=== PATIENT | male | born 1970 | race Caucasian/White ===

== ENCOUNTER 2020-02-27 14:06 | Emergency (ER) | payer BC, SELFPAY ==
[2020-02-27 14:23] VITALS: BP 129/90; PULSE 93; RESP 18; TEMP 36.6; O2SAT 98; BMI 27.7
--- NOTE | 2020-02-27 14:30 | XRR_ITS ---
PROCEDURE INFORMATION: Exam: XR Chest, 1 View Exam date and time: 02/27/2020 2:53 PM Age: 49 years old Clinical indication: Chest pain; Type not specified TECHNIQUE: Imaging protocol: XR of the chest Views: 1 view. COMPARISON: No relevant prior studies available. FINDINGS: Lungs: No focal infiltrate. Pleural space: Unremarkable. No pleural effusion. No pneumothorax. Heart/Mediastinum: Unremarkable. No cardiomegaly. Bones/joints: Unremarkable. XR/XR chest 1V portable [id number] IMPRESSION: No focal infiltrate. Question subtle atelectasis within the lung bases.
--- NOTE | 2020-02-27 14:30 | ECG_ITS ---
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 Measurements Intervals [place] Rate: 75 P: 37 RI: 162 QRS: 40 QRSD: 91 T: 39 QT: 376 QTc: 422 Interpretive Statements SINUS RHYTHM No previous ECG available for comparison Electronically Signed On 02-27-2020 17:02:44 CDT by Calixto Gunderson M.D. [id number] f
--- NOTE | 2020-02-27 15:10 | ED_ITS ---
HPI - Chest Pain General: Chief Complaint: Chest Pain Stated Complaint: sob/chest tightness/ Time Seen by Provider: 02/27/20 14:25 History of Present Illness: HPI narrative: 49-year-old male presents to the emergency room complaint of right rib pain. He was seen by a chiropractor earlier this week and had an adjustment seem to be getting better and then today he sat down to talk to his on the phone and began to have chest pain that radiated around from the right all the way around across his chest and back. He is not had any rash. It resolved after about 10 minutes. He now has pain with deep inspiration and change in position. He denies any diarrhea nausea or vomiting. No fever no cough he has a little shortness of breath but he feels that is because he cannot take a deep breath. He has had a slightly productive cough of greenish sputum for the last week as well. MD complaint: chest pain Onset (ago): minute(s) Timing of current episode: episodic Prior episodes: No Onset: during rest Pain location: left chest and right chest Pain radiation: none Severity: severe Quality: sharp Relieving factors: rest and other (Shallow inspirations) Exacerbating factors: inspiration and movement Associated symptoms: Reports dyspnea; Deny abdominal pain, diaphoresis, fever(s), leg edema, nausea, palpitations, sense of impending doom, syncope, vomiting or other Treatment prior to arrival: none Review of Systems Const: Denies: fever(s) or diaphoresis ENMT: Denies: throat pain, ear or mastoid pain, nasal discharge or nasal congestion Card: Denies: palpitations or syncope Resp: Reports: dyspnea GI: Denies: abdominal pain, nausea or vomiting : Denies: flank pain, dysuria, urinary frequency or urinary urgency Skin/Breast: Denies: rash or pruritus PFS ED PFSH: Medical History (Updated 02/27/20 @ 18:13 by Negro Segovia DO) Herpes Surgical History History of rectal polypectomy History of tonsillectomy Family History Mother Cancer Social History Smoking and tobacco status: current every day smoker cigarettes Packs smoked per day: 1 Alcohol intake: never Current occupational status: employed Current occupation: [employer] Physical Exam Const: COMMON NORMALS: no acute distress GENERAL APPEARANCE: cooperative and comfortable ORIENTATION/CONSCIOUSNESS: Yes awake, Yes oriented to person, Yes oriented to place and Yes oriented to time HENMT: COMMON NORMALS: normocephalic, atraumatic and hearing grossly normal bilaterally HEAD & SCALP: normocephalic and atraumatic Eye: COMMON NORMALS: Equal, round and reactive pupils present, EOMs intact bilaterally, conjunctivae normal and no scleral icterus CONJUNCTIVA: Yes conjunctivae normal PUPIL: Yes Equal, round and reactive pupils present Neck/C-Spine: COMMON NORMALS: full ROM, no lymphadenopathy, supple and no JVD Lymph: LYMPHATIC: no lymphadenopathy noted and no lymphedema noted Chest: OTHER: Chest pain mildly reproducible across anterior chest wall Resp: COMMON NORMALS: normal respiratory effort, No retractions, No use of accessory muscles and clear to auscultation bilaterally AUSCULTATION: clear to auscultation bilaterally Cardio: COMMON NORMALS: no JVD, regular rate, regular rhythm and No murmurs present (Cardio) RATE: regular rate RHYTHM: regular rhythm GI: COMMON NORMALS: Soft to palpation and No hepatosplenomegaly present AUSCULTATION: Yes normoactive bowel sounds PALPATION: Yes Soft to palpation, No Tenderness to palpation present (GI), No Guarding due to palpation present (GI) and Yes No hepatosplenomegaly present Extremity: COMMON NORMALS: normal to inspection, capillary refill normal, no clubbing, cyanosis or edema, no calf tenderness and no pedal edema Neuro: SENSORIUM/ORIENTATION: Yes oriented to person, Yes oriented to place and Yes oriented to time Skin: COMMON NORMALS: no rashes or lesions noted GENERAL SKIN EXAM: no rashes or lesions noted Course Vital Signs: Vital signs: Vital Signs Temperature 97.8 F 02/27/20 14:23 Pulse Rate 60 02/27/20 18:37 Respiratory Rate 20 H 02/27/20 18:37 Blood Pressure 113/76 02/27/20 18:37 Pulse Oximetry 94 02/27/20 18:37 MDM - Chest Pain MDM Narrative: Medical decision making narrative: Reveals full deep inspiration and somewhat with palpation is a little bit concerned so we get a second troponin both were negative we will go ahead and discharge the patient home with a Medrol Dosepak and diclofenac if has any worsening or change symptoms return to the emergency room. Lab Data: Labs: Lab Results 02/27/20 02/27/20 02/27/20 Range/Units 15:30 15:30 15:30 WBC 9.2 (4.0-10.0) 10^3/ uL RBC 4.92 (4.1-5.3) 10^6/u L Hgb 15.9 (11.7-16.6) g/dL Hct 46.9 (42.0-52.0) % MCV 95.3 H (80-94) fL MCH 32.3 (28.0-34.0) pg MCHC 33.9 (30.0-36.0) g/dL RDW 12.0 L (12.1-15.1) % Plt Count 244 (130-400) 10^3/c mm MPV 10.0 (7.4-10.4) fL Neut % (Auto) 48.8 % Lymph % (Auto) 39.0 % [place] % (Auto) 8.1 % Eos % (Auto) 3.3 % Baso % (Auto) 0.7 % Neut # (Auto) 4.48 (1.8-7.7) 10^3/u L Lymph # (Auto) 3.6 (0.8-4.8) 10^3/u L [place] # (Auto) 0.7 (0.2-0.9) 10^3/u L Eos # (Auto) 0.3 (0.0-0.8) 10^3/u L Baso # (Auto) 0.1 (0.0-0.1) 10^3/u L Nucleated RBC % (a uto) 0 % Nucleated RBCs # 0.0 /100WBC Sodium 139 (136-145) mmol/L Potassium 4.2 (3.5-5.1) mmol/L Chloride 104 (98-107) mmol/L Carbon Dioxide 23 (22-29) mmol/L Anion Gap 16.2 (5-19) BUN 16 (6-20) mg/dL Creatinine 1.0 (0.7-1.2) mg/dL GFR Calculation 80.1 L (90-130) mL/min Glucose 90 (65-115) mg/dL Calculated Osmolal ity 289 (285-295) mOsm/k g Calcium 9.6 (8.5-10.5) mg/dL Total Bilirubin 0.3 (0.15-1.2) mg/dL AST 18 (0-40) U/L ALT 29 (0-41) U/L Alkaline Phosphata se 81 (40-130) IU/L Troponin T Baselin e 7 (0-15) ng/L Troponin T [address] [place] (0-15) ng/L Delta Troponin T (0-10) ABS# Total Protein 7.2 (6.6-8.7) g/dL Albumin 4.9 (3.5-5.2) g/dL Globulin 2.3 (1.3-4.6) g/dL 02/27/20 Range/Units 17:22 WBC (4.0-10.0) 10^3/ uL RBC (4.1-5.3) 10^6/u L Hgb (11.7-16.6) g/dL Hct (42.0-52.0) % MCV (80-94) fL MCH (28.0-34.0) pg MCHC (30.0-36.0) g/dL RDW (12.1-15.1) % Plt Count (130-400) 10^3/c mm MPV (7.4-10.4) fL Neut % (Auto) % Lymph % (Auto) % [place] % (Auto) % Eos % (Auto) % Baso % (Auto) % Neut # (Auto) (1.8-7.7) 10^3/u L Lymph # (Auto) (0.8-4.8) 10^3/u L [place] # (Auto) (0.2-0.9) 10^3/u L Eos # (Auto) (0.0-0.8) 10^3/u L Baso # (Auto) (0.0-0.1) 10^3/u L Nucleated RBC % (a uto) % Nucleated RBCs # /100WBC Sodium (136-145) mmol/L Potassium (3.5-5.1) mmol/L Chloride (98-107) mmol/L Carbon Dioxide (22-29) mmol/L Anion Gap (5-19) BUN (6-20) mg/dL Creatinine (0.7-1.2) mg/dL GFR Calculation (90-130) mL/min Glucose (65-115) mg/dL Calculated Osmolal ity (285-295) mOsm/k g Calcium (8.5-10.5) mg/dL Total Bilirubin (0.15-1.2) mg/dL AST (0-40) U/L ALT (0-41) U/L Alkaline Phosphata se (40-130) IU/L Troponin T Baselin e (0-15) ng/L Troponin T [address] [place] 6.56 (0-15) ng/L Delta Troponin T -0.44 L (0-10) ABS# Total Protein (6.6-8.7) g/dL Albumin (3.5-5.2) g/dL Globulin (1.3-4.6) g/dL Discharge Plan Discharge Patient Disposition: Home Clinical Impression: Atypical chest pain Condition: Stable Prescriptions: New diclofenac sodium 75 mg tablet,delayed release (DR/EC) 75 mg PO Q12H PRN (Reason: pain) Qty: 20 RF: 0 Medrol (Jesse) 4 mg tablets,dose pack See Rx Instructions .ROUTE .COMPLEX Qty: 21 RF: 0 No Action valacyclovir 500 mg tablet 500 mg PO DAILY RF: 0 Discharge Orders: Discharge Order (Routine); Ordered 02/27/20 Ordered By: Negro Segovia Referrals: Sterling Vegas MD [Primary Care Provider] - Discharge Diet: Usual diet Discharge Activity: Increase activity as tolerated Activity Restrictions/Additional Instructions: Return to the emergency room if you have recurrence of symptoms Discharge Date/Time: 02/27/20 18:39 Coding Level of Care Code ED Employment Interviewer for Chg Fwd Exam Comprehensive
[2020-02-27 15:48] LABS: Basophils # 0.1 10^3/uL (0.0-0.1); Basophils % 0.7 %; Eosinophils # 0.3 10^3/uL (0.0-0.8); Eosinophils % 3.3 %; Hematocrit 46.9 % (42.0-52.0); Hemoglobin 15.9 g/dL (11.7-16.6); Lymphocytes # 3.6 10^3/uL (0.8-4.8); Mean Corpuscular HGB Conc 33.9 g/dL (30.0-36.0); Mean Corpuscular Hemoglobin 32.3 pg (28.0-34.0); Mean Corpuscular Volume 95.3 fL (80-94); Monocytes # 0.7 10^3/uL (0.2-0.9); Monocytes % 8.1 %; Neutrophils # 4.48 10^3/uL (1.8-7.7); Neutrophils % 48.8 %; Nucleated Red Blood Cells % 0 %; Platelet Count 244 10^3/cmm (130-400); Red Blood Count 4.92 10^6/uL (4.1-5.3); White Blood Count 9.2 10^3/uL (4.0-10.0)
[2020-02-27 16:10] LABS: Alanine Aminotransferase 29 U/L (0-41); Albumin Level 4.9 g/dL (3.5-5.2); Alkaline Phosphatase 81 IU/L (40-130); Anion Gap 16.2 (5-19); Aspartate Amino Transferase 18 U/L (0-40); Blood Urea Nitrogen 16 mg/dL (6-20); Calcium 9.6 mg/dL (8.5-10.5); Carbon Dioxide 23 mmol/L (22-29); Chloride 104 mmol/L (98-107); Globulin 2.3 g/dL (1.3-4.6); Glomerular Filtration Rate 80.1 mL/min (90-130); Glucose 90 mg/dL (65-115); Osmolality Calculated 289 mOsm/kg (285-295); Potassium 4.2 mmol/L (3.5-5.1); Sodium 139 mmol/L (136-145); Total Bilirubin 0.3 mg/dL (0.15-1.2); Total Protein 7.2 g/dL (6.6-8.7)
[2020-02-27 16:13] LABS: Troponin(5th) Baseline 7 ng/L (0-15)
--- NOTE | 2020-02-27 16:30 | ECG_ITS ---
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 Measurements Intervals [place] Rate: 77 P: 35 DC: 152 QRS: 40 QRSD: 93 T: 35 QT: 364 QTc: 414 Interpretive Statements SINUS RHYTHM No previous ECG available for comparison Electronically Signed On 02-27-2020 17:03:51 CDT by Calixto Gunderson M.D. [id number] f
[2020-02-27 17:11] VITALS: BP 107/73; PULSE 71; RESP 18; O2SAT 93
[2020-02-27 17:57] LABS: Troponin 5 2HR 6.56 ng/L (0-15)
[2020-02-27 18:09] LABS: Troponin 5 2HR Delta -0.44 ABS# (0-10)
[2020-02-27 18:37] VITALS: BP 113/76; PULSE 60; RESP 20; O2SAT 94
== END 2020-02-27 18:39 | disposition home or self-care (01) ==
PROVIDERS: Emergency Provider Family Medicine; PCP Family Medicine
DX: R07.89 Other chest pain (principal); F17.210 Nicotine dependence, cigarettes, uncomplicated
CPT/HCPCS: 12345; 36415; 71045; 80053; 84484; 85025; 93005; 99282; 99283

== ENCOUNTER 2023-05-06 14:07 | Outpatient (CLI) | payer BC, SELFPAY ==
--- NOTE | 2023-05-06 14:16 | CT_ITS ---
WS: [id number] LDCT LUNG CANCER SCREENING HISTORY: HX OF TOBACCO USE TECHNIQUE: Axial imaging performed from the apices to 1 cm below the costophrenic angles. Coronal and sagittal reformats are submitted with axial MIP series. All CT scans at [facility] use at least one of these dose optimization techniques: automated exposure control; mA and/or kV adjustment per patient size (includes targeted exams where dose is matched to clinical indication); or iterativ e reconstruction. DLP: 82.90 mGy.cm DIvol: Mean CTDIvol: 1.70 (mGy) COMPARISON: None available. Diagnostic quality: Satisfactory Lungs: 3 mm nodule, noncalcified at the lingula. No additional nodule or mass. No endobronchial lesio ns. Heart: Normal size heart with no pericardial effusion.. Coronary artery plaque. Other findings: No adenopathy. Benign axillary lymph nodes. Negative gallbladder. No adrenal mass. IMPRESSION: CT/CT lung screening [id number] LUNG-RADS: 2-Benign Appearance or Behavior FOLLOW UP: 12 Month: Continue annual screening with LDCT OTHER FINDINGS (S MODIFIER): None.
== END 2023-05-06 14:08 | disposition home or self-care (01) ==
LOC: RAD 14:07
PROVIDERS: PCP Family Medicine; Visit Provider Family Medicine
DX: Z12.2 Encounter for screening for malignant neoplasm of respiratory organs (principal); Z87.891 Personal history of nicotine dependence
CPT/HCPCS: 71271

== ENCOUNTER 2024-10-08 07:00 | Outpatient (CLI) | payer BC, SELFPAY ==
--- NOTE | 2024-10-08 07:11 | CT_ITS ---
WS: [id number] LDCT LUNG CANCER SCREENING HISTORY: NICOTINE DEPENDENCE TECHNIQUE: Axial imaging performed from the apices to 1 cm below the costophrenic angles. Coronal and sagittal reformats are submitted with axial MIP series. All CT scans at [facility] use at least one of these dose optimization techniques: automated exposure control; mA and/or kV adjustment per patient size (includes targeted exams where dose is matched to clinical indication); or iterative reconstruction. DLP: 94.02 mGy.cm DIvol: Mean CTDIvol: 2.00 (mGy) COMPARISON: 05/06/2023 Diagnostic quality: Satisfactory Lungs: Stable 3 mm nodule in the lingula. No additional nodules or masses. No groundglass attenuation or endobronchial lesions. Heart: Normal size heart with no pericardial effusion.. Other findings: Mild atherosclerosis aorta. Normal size aorta and pulmonary artery. No adenopathy. Adrenal glands are negative. CT/CT lung screening [id number] IMPRESSION: LUNG-RADS: 2-Benign Appearance or Behavior FOLLOW UP: 12 Month: Continue annual screening with LDCT OTHER FINDINGS (S MODIFIER): None.
== END 2024-10-08 07:01 | disposition home or self-care (01) ==
PROVIDERS: PCP Family Medicine; Visit Provider Family Medicine
DX: Z12.2 Encounter for screening for malignant neoplasm of respiratory organs (principal); F17.210 Nicotine dependence, cigarettes, uncomplicated; R91.1 Solitary pulmonary nodule; I70.0 Atherosclerosis of aorta
CPT/HCPCS: 71271

== ENCOUNTER 2025-05-10 09:11 | Outpatient (CLI) | payer BC, SELFPAY | END 2025-05-10 09:12 | disposition home or self-care (01) | LOC: SLEEP 09:12 | PROVIDERS: PCP Family Medicine; Referring Provider Family Medicine; Visit Provider Internal Medicine Pulmonary Disease | DX: G47.33 Obstructive sleep apnea (adult) (pediatric) (principal) | CPT/HCPCS: G0399 ==